=== PATIENT | male | born 1985 | race Two or more races ===

== ENCOUNTER 2017-05-11 11:10 | Emergency (ER) | payer SELFPAY ==
[~2017-05-11] VITALS: Ht 188 cm; Wt 77.1 kg
[2017-05-11 11:16] VITALS: BP 116/73
== END 2017-05-11 13:11 | disposition home or self-care (01) ==
LOC: ER 11:11
DX: M25.532 Pain in left wrist (principal); V49.49XA Driver injured in collision with other motor vehicles in traffic accident, initial encounter; Y93.89 Activity, other specified; Y92.413 State road as the place of occurrence of the external cause; Y99.8 Other external cause status
CPT/HCPCS: 29125; 73110; 73130; 99284; A4606; Z7610